=== PATIENT | male | born 1940 | race Caucasian/White ===

== ENCOUNTER 2016-07-24 12:36 | Day surgery (SDC) | payer OTHER ==
[2016-07-24] MEDS ORDERED: ceFAZolin 2 GM/DEXTROSE 100 ML IV ONE (13:00)
[2016-07-24] MEDS ORDERED: D5W LR 1,000 ML IV SCH (13:00)
[2016-07-24] MEDS ORDERED: LIDOCAINE 2% JELLY 20 ML (UROJECT) ONE (13:23)
[2016-07-24] MEDS ORDERED: IOPAMIDOL (ISOVUE-M 300) 15 ML VIAL IV ONE (13:24)
[2016-07-24] MEDS ORDERED: ROCURONIUM 50 MG/5 ML VIAL ONE ×2 (13:26→14:44)
[2016-07-24] MEDS ORDERED: PROPOFOL 200 MG/20 ML VIAL ONE ×2 (13:26)
[2016-07-24] MEDS ORDERED: fentaNYL 100 MCG/2 ML INJ ONE (13:26)
[2016-07-24] MEDS ORDERED: LIDOCAINE 2% 100 MG/5 ML SYR ONE (13:27)
[2016-07-24] MEDS ORDERED: DEXAMETHASONE 4 MG/ML VIAL ONE (13:44)
[2016-07-24] MEDS ORDERED: epHEDrine SULFATE 10 MG/ML SYR ONE (13:52)
[2016-07-24] MEDS ORDERED: GLYCOPYRROLATE 0.2 MG/1 ML VIAL ONE (14:01)
[2016-07-24] MEDS ORDERED: ONDANSETRON 4 MG/2 ML VIAL ONE (14:36)
[2016-07-24] MEDS ORDERED: SUGAMMADEX SODIUM 200 MG/2 ML VIAL IVP ONE (14:36)
--- NOTE | 2016-07-24 15:19 | GOP ---
[f rep st] OPERATIVE REPORT DATE OF OPERATION: SURGEON: Cesar Hurley MD PREOPERATIVE DIAGNOSIS: Right ureteral stone and gross hematuria. POSTOPERATIVE DIAGNOSIS: Right ureteral stone and gross hematuria. Ureteral stricture. PROCEDURE PERFORMED: Ureteroscopy with laser ureterotomy of scar, and holmium laser lithotripsy of stone, and placement of ureteral stent, fluoroscopy with interpretation. FINDINGS: DESCRIPTION OF PROCEDURE: This gentleman underwent general anesthesia, was prepped and draped in normal sterile fashion in dorsal lithotomy position. Under retrograde fashion, he had a retrograde ureteral pyelogram that revealed a stone. The stone was impacted in the ureter, and it was difficult to get a stent or a wire beyond it. Finally, I was able to, and then tried to dilate the intramural ureter with the inner working lumen of the ureteral access sheath , and that was dilated but could not get up to the stone; so, as a semi-rigid scope was passed up, he had 2 dense narrowed areas that were scarred of the ureter, and so laser ureterotomy was performed, and then I was able to get the stone, fragment it in pieces and extract the fragments with the scope. Then, under fluoroscopic control, I passed a 4.7 multi-length stent that curled in the renal pelvis, curled in the bladder. The bladder was emptied, and the position of this stent was a good place. 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 He had Urojet placed in the urethra, and a Aldridge catheter placed. He will be discharged home, and have him remove his catheter tomorrow at home. He is to follow up with me for stent removal in approximately 2 weeks. /[id number]/MODL MTDD
== END 2016-07-24 16:35 | disposition home or self-care (01) ==
LOC: FSGY 12:36
PROVIDERS: ATTEND Specialist
PROC: 0T9080Z Drainage of Right Kidney with Drainage Device, Via Natural or Artificial Opening Endoscopic (ICD-10-PCS; principal; 2016-07-24 15:15)
PROC: 0TC08ZZ Extirpation of Matter from Right Kidney, Via Natural or Artificial Opening Endoscopic (ICD-10-PCS; principal; 2016-07-24 15:15)
PROC: 0TC68ZZ Extirpation of Matter from Right Ureter, Via Natural or Artificial Opening Endoscopic (ICD-10-PCS; principal; 2016-07-24 15:15)
DX: N20.2 Calculus of kidney with calculus of ureter (principal); Z85.46 Personal history of malignant neoplasm of prostate
CPT/HCPCS: 52352; 76001; C1758; C1769; C1894; C2625; J0690; J1100; J2001; J2405; J2704; J3010; Q9967

== ENCOUNTER → 2017-04-03 | Outpatient (CLI) | payer OTHER | LOC: BHFA 14:00 | PROVIDERS: ATTEND Internal Medicine Cardiovascular Disease | DX: I73.9 Peripheral vascular disease, unspecified (principal); G62.9 Polyneuropathy, unspecified ==

== ENCOUNTER → 2017-08-14 | Outpatient (CLI) | payer OTHER | LOC: BHFA 13:15 | PROVIDERS: ATTEND Internal Medicine | DX: R06.09 Other forms of dyspnea (principal); I25.10 Atherosclerotic heart disease of native coronary artery without angina pectoris ==

== ENCOUNTER 2018-08-26 10:21 | Emergency (ER) | payer OTHER ==
[2018-08-26] MEDS ORDERED: DILTIAZEM 30 MG TAB PO ONE (12:26)
[2018-08-26] MEDS ORDERED: APIXABAN 5 MG TAB PO ONE (12:26)
== END 2018-08-26 13:16 | disposition home or self-care (01) ==
DX: I48.92 Unspecified atrial flutter (principal)

== ENCOUNTER 2018-09-22 11:00 | Observation (INO) | payer OTHER ==
[2018-09-22] MEDS ORDERED: NS 1,000 ML IV ONE (11:07)
[2018-09-22 12:09] LABS: PLATELET COUNT 108 10^3/uL (150-400)
[2018-09-22 12:16] LABS: INR 1.08 (0.83-1.16); PROTIME(PATIENT) 13.6 SEC (12.0-15.0)
[2018-09-22] MEDS ORDERED: HEPARIN 10,000 UNIT/10 ML MDV (1,000 UNIT/ML) ONE ×2 (12:16→13:41)
[2018-09-22] MEDS ORDERED: BUPIVACAINE 0.5% 30 ML SDV ONE (12:16)
[2018-09-22] MEDS ORDERED: ISOPROTERENOL HCL/D5W 0.2 MG/50 ML BAG IV ONE (12:17)
[2018-09-22] MEDS ORDERED: PROPOFOL 200 MG/20 ML VIAL ONE (12:33)
[2018-09-22] MEDS ORDERED: fentaNYL 100 MCG/2 ML INJ ONE (12:33)
--- NOTE | 2018-09-22 12:39 | PDGENHP ---
History & Physical Chief Complaint: typical atrial flutter History of Present Illness: typical atrial flutter Relevant Physical Exam: A+Ox4, irr irr (AFL with variable conduction), CTAB, no focal deficits Cardiorespiratory Assessment: typical AFL -> CONSUELO + CTI ablation
--- NOTE | 2018-09-22 12:49 | POSTANESTH ---
Post Anesthetic Evaluation Cardiovascular Status: Normal, Stable Respiratory Status: Normal, Stable Level of Consciousness/Mental Status: Can Participate in Eval Pain Control: Adequate, Prn Tx Ordered Nausea/Vomiting Control: Adequate, Prn Tx Ordered Complications Possibly Related to Anesthesia: None Noted
--- NOTE | 2018-09-22 12:49 | PDANEPAE ---
ANE Past Medical History - Cardiovascular History Hx Hypertension: Yes Hx Arrhythmias: No Hx Chest Pain: No Hx Coronary Artery / Peripheral Vascular Disease: No Hx CHF / Valvular Disease: No Hx Palpitations: No - Pulmonary History Hx COPD: No Hx Asthma/Reactive Airway Disease: No Hx Recent Upper Respiratory Infection: No Hx Oxygen in Use at Home: No Hx Sleep Apnea: No - Neurologic History Hx Cerebrovascular Accident: No Hx Seizures: No Hx Dementia: No - Endocrine History Hx Diabetes: No - Renal History Hx Renal Disorders: Yes Renal History Comment: kidney stone at present - Liver History Hx Hepatic Disorders: No - Neurological & Psychiatric Hx Hx Neurological and Psychiatric Disorders: No - Cancer History Hx Cancer: Yes Cancer History Comment: prostate - Congenital Disorder History Hx Congenital Disorders: No - GI History Hx Gastrointestinal Disorders: No - Chronic Pain History Chronic Pain: No - Surgical History Prior Surgeries: micro discectomy L3-4. prostatectomy 2013. left hand surgery. diaz BRIONES Review of Systems Review of Systems: ANSELMO Patient History - Allergies Allergies/Adverse Reactions: erythromycin base [Erythromycin Base] Allergy (Severe, Verified 08/26/18 10:31) Swelling/neck,face,throat - Home Medications Home Medications: Allopurinol [Allopurinol 300 MG (RX)] 300 mg PO DAILY 08/10/12 [Last Taken 07/23] Aspirin EC [Aspirin EC 81 mg (OTC)] 81 mg PO DAILY 08/10/12 [Last Taken 07/17/16 ] Atorvastatin Calcium [Lipitor 10 mg (RX)] 10 mg PO DAILY 08/10/12 [Last Taken ] Cholecalciferol Vit D3 [Vitamin D3 1000 units (OTC)] 1,000 units PO DAILY [Last Taken 07/24/16] Eplerenone [Inspra] 75 mg PO DAILY 08/10/12 [Last Taken 07/24/16] Multivitamins [Tab-A-Lynda] 1 each PO DAILY 08/10/12 [Last Taken 07/24/16] aMILoride HCL [Amiloride HCl] 10 mg PO DAILY 08/10/12 [Last Taken 07/23/16] Diltiazem HCl [Diltiazem 24Hr Cd] 120 mg PO DAILY 09/17/18 [Last Taken Unknown] Lisinopril [Zestril 40 mg (*)] 40 mg PO DAILY 09/17/18 [Last Taken Unknown] Serum Eye Drops 1 drop EACHEYE QID 09/17/18 [Last Taken Unknown] amLODIPine BESYLATE [Amlodipine Besylate] 5 mg PO DAILY 09/17/18 [Last Taken Unknown] - Smoking Hx Smoking Status: Never smoked - Family Anes Hx Family Hx Anesthesia Complications: none ANE Labs/Vital Signs - Labs Result Diagrams: 09/22/18 11:50 09/22/18 11:50 - Vital Signs Height: 173 cm Weight: 74.8 kg ANE Physical Exam - Airway Neck exam: FROM Mallampati Score: Class 2 Mouth exam: normal dental/mouth exam - Pulmonary Pulmonary: no respiratory distress, no rales or rhonchi, clear to auscultation - Cardiovascular Cardiovascular: no murmur, rub, or gallop, irregularly irregular - ASA Status ASA Status: III ANE Anesthesia Plan Anesthesia Plan: general endotracheal anesthesia
[2018-09-22] MEDS ORDERED: ROCURONIUM 100 MG/10 ML VIAL ONE (13:29)
[2018-09-22] MEDS ORDERED: PHENYLEPHRINE HCL 100 MCG/ML SYR ONE ×3 (13:38→14:44)
[2018-09-22] MEDS ORDERED: HEPARIN/DEXTROSE 25,000 UNIT/500 ML BAG ONE (13:41)
[2018-09-22] MEDS ORDERED: ePHEDrine SULFATE 25 MG/5 ML SYR ONE ×2 (14:18→14:44)
[2018-09-22] MEDS ORDERED: ONDANSETRON 4 MG/2 ML VIAL ONE (14:57)
[2018-09-22] MEDS ORDERED: SUGAMMADEX SODIUM 200 MG/2 ML VIAL IVP ONE (14:57)
[2018-09-22] MEDS ORDERED: PROTAMINE SULFATE 50 MG/5 ML VIAL IVP ONE (16:41)
[2018-09-22] MEDS ORDERED: ACETAMINOPHEN 325 MG TAB PO PRN (17:21)
[2018-09-22] MEDS ORDERED: OXYCODONE/APAP 5/325 TAB PO PRN (17:21)
[2018-09-22] MEDS ORDERED: FUROSEMIDE 40 MG/4 ML VIAL IVP ONE (17:31)
--- NOTE | 2018-09-22 17:35 | POSTANESTH ---
Post Anesthetic Evaluation Cardiovascular Status: Normal, Stable Respiratory Status: Normal, Stable Level of Consciousness/Mental Status: Can Participate in Eval, Alert and Oriented Pain Control: Adequate, Prn Tx Ordered Nausea/Vomiting Control: Adequate, Prn Tx Ordered Complications Possibly Related to Anesthesia: None Noted
--- NOTE | 2018-09-22 18:11 | EPPROC ---
Electrophysiology Procedure Note: Date: 09/22/2018 Distribution Accounting Clerk: José Miguel Dykes MD Procedures: Comprehensive EP study, transseptal access, and pulmonary vein isolation -50697 Ablation of left atrial roof flutter-936 I 7 Ablation of mitral isthmus flutter -49957 Ablation of focal left atrial tachycardia (base of the left atrial appendage) - 73419 3D electro anatomic mapping -15661 Intracardiac echo -47694 Transesophageal ECHO-81287 Indications: 78-year-old male with persistent atrial flutter, suspected typical atrial flutter based on lack of prior a triage any or atrial ablation, and typical appearance by ECG. Techniques: Following informed consent, the patient was brought to the EP lab in a fasting nonsedated state, in atrial flutter rhythm. General anesthesia was provided by the anesthesiology service. Transesophageal echocardiography demonstrated the absence of left atrial appendage thrombus (see formal report for full details). Bilateral groins were prepped and draped in usual sterile fashion. Under ultrasound guidance, vascular access was obtained x2 in the right femoral vein with placement of 8 [place] and SR 0 sheaths. A Thrasos Touch SF DF curved catheter was advanced to the right atrium under Carto guidance and used to create a right atrial and CS map. A decapolar catheter was positioned in the CS. After positioning of the decapolar catheter in the CS, it was noted that the CS activation pattern was distal to proximal, raising concern for atypical atrial flutter. Activation mapping of the right atrium showed bystander activation of the RA. Entrainment from CS distal showed short PPI; entrainment from CS proximal showed a long PPI. The decision was made to proceed with transseptal access. Weight based heparin bolus and drip was administered, targeting ACT 350 sec. A esophageal temperature probe was inserted. The SR 0 sheath was exchanged for an SL 0 sheath. Under ultrasound guidance, an additional access was obtained in the right femoral vein with placement of an 8 [place] sheath, through which a Sound Star intracardiac echo catheter was inserted. This was used to create a CARTO sound map of the LA, MONI[place], pulmonary veins, and esophagus. A Sysorex transseptal needle was inserted in the SL 0 sheath, and the system was positioned at the fossa ovalis under intracardiac echo guidance. The fossa was crossed, and the sheath positioned in the mid LA. The sheath was connected to continuous saline irrigation. A PentaRay multipolar catheter was used to create a Carto anatomic map of the left atrium, left atrial appendage, pulmonary veins. Activation mapping and entrainment mapping of atrial tachycardia #1 was performed. AT #1 showed TCL 220ms, CS distal>proximal activation, and mapping suggestive of focal origin at the base of the left atrial appendage, near the mitral valve at the 2 o'clock position. The PentaRay was replaced with the ablation catheter , and RF ablation was performed at 35-40 w power in this location. During RF ablation, the CS activation pattern changed, suggesting transition to atrial tachycardia #2. AT #2 showed TCL 210ms, flat CS activation; entrainment mapping and local activation mapping suggested left atrial roof flutter, with preferential reentry around the base of the left pulmonary veins. Due to the need for LA roof flutter ablation, the decision was made to proceed with pulmonary vein isolation. RF ablation was performed in a wide area circumferential fashion, encircling the left pulmonary veins, then the right pulmonary veins EN bloc. The posterior aspect of the right inferior pulmonary vein was ablated using 25 w , non irrigated, short duration lesions due to esophageal proximity. After completion of the PVI lesion set, a connecting left atrial roof line was performed at 40 w power. Near completion of the left atrial roof line, the CS activation pattern was noted to change again to atrial tachycardia #3. AT #3 showed TCL 225ms, CS distal to proximal activation; entrainment mapping and local activation mapping suggested mitral isthmus reentry flutter in a clockwise fashion. RF ablation was performed at 40 w power, creating an anterior mitral isthmus line, connecting the previously ablated atrial tachycardia at the 2 o'clock mitral annulus, to the RSPV. Near completion of the anterior mitral isthmus line, the CS activation pattern was noted to change once again, however this time showed a more polymorphic appearance. The patient was then cardioverted out of multifocal atrial tachycardia. The ablation catheter was then removed, and the PentaRay catheter was reinserted. Substrate mapping demonstrated isolation of all 4 pulmonary veins, as well as complete left atrial roof and mitral isthmus lines. Activation mapping suggested block across both lines (inferior to superior activation of the posterior wall during sinus rhythm suggesting block across the roof line; septal to lateral activation of the anterior wall during CS distal pacing suggesting block across the anterior mitral isthmus line). At the completion of the procedure, intracardiac echo survey showed no evidence of pericardial effusion; biventricular systolic function was preserved. All catheters were removed. A temporary hemostasis suture was applied to the right groin access site, and all sheaths were removed; manual pressure was held until hemostasis. The patient tolerated the procedure well. EBL: 30 cc Complications: None Assessment: Focal left atrial tachycardia arising at the base of the left atrial appendage, successfully ablated Left atrial roof flutter, successfully ablated via left atrial roof line and pulmonary vein isolation Mitral isthmus flutter, successfully ablated via anterior mitral isthmus line Plan: Bedrest for 6 hr Echo in a.m. Resume Eliquis at the completion of bedrest, continue for 3 months PPI for 6 weeks post ablation Groin precautions for 10 days
[2018-09-22] MEDS: APIXABAN 5 MG TAB PO SCH (23:06)
[2018-09-23 06:44] LABS: CREATINE KINASE 94 IU/L (0-224)
[2018-09-23 07:03] LABS: PLATELET COUNT 100 10^3/uL (150-400)
--- NOTE | 2018-09-23 07:51 | ECHO ---
[email or web address] [address] [address] Main: [phone] Echocardiography Examination Transesophageal Name: WILTON LUNA MR#: [id number] Study Date: 09/22/2018 Study Time: 12:59 PM Date of : 1940 Age: 78 year(s) Height: ( ) Weight: ( ) BSA: Gender: Male Examination: CONSUELO Contrast: Image Quality: Adequate Rhythm: Heart Rate: BP: / Indication: Pre EP study/eval for thrombus Procedure Staff Referring Physician: Help Desk Intern: Perla Morales [facility] Reading Physician: Krunal Dykes MD Requesting Provider: Ordering Physician: Krunal Dykes MD Indication: Pre EP study/eval for thrombus Acute complication: None Conclusions Left Ventricle: Normal global systolic left ventricular function. Left Atrium Appendage: The left atrial appendage function is normal (normal emptying velocity). No thrombus is identified. IAS: An agitated saline study was performed and was negative for intracardiac shunting. Mitral Valve: Mild to moderate mitral regurgitation. Tricuspid Valve: Moderate tricuspid regurgitation. Findings Left Ventricle: Normal global systolic left ventricular function. Patient: WILTON LUNA Study Date: 09/22/2018 Page 1 of 2 12:59 PM IVS: The septum is intact. Left Atrium Appendage: The left atrial appendage function is normal (normal emptying velocity). Normal left atrial appendage. No thrombus is identified. IAS: An agitated saline study was performed and was negative for intracardiac shunting. No evidence of a patent foramen ovale. Right Atrium: Definite Eustachian valve in right atrium. Mitral Valve: Mildly thickened mitral leaflets.. Mild to moderate mitral regurgitation. No mitral valve stenosis. Aortic Valve: Aortic leaflets exhibit normal cuspal separation. No aortic valve regurgitation. There is no aortic stenosis. The aortic valve is trileaflet. Tricuspid Valve: Normal. Moderate tricuspid regurgitation. Pulmonic Valve: Pulmonic valve is poorly visualized. Aorta: The aorta is normal. Exam Details Procedure Ordered: CONSUELO Procedure Status: Routine study Image Quality: Adequate Consent: Risks, alternatives of procedure explained to patient, informed consent obtained Probe Insertion: Attending dining room busser Facility Location: Cardiac Echo 1 (No Signature Object) Patient: WILTON LUNA Study Date: 09/22/2018 Page 2 of 2 12:59 PM [id number]
[2018-09-23] MEDS: APIXABAN 5 MG TAB PO SCH (08:43)
[2018-09-23] MEDS ORDERED: ALLOPURINOL 300 MG TAB PO SCH (09:00)
[2018-09-23] MEDS ORDERED: LISINOPRIL 40 MG TAB PO SCH (09:00)
[2018-09-23] MEDS ORDERED: ATORVASTATIN CALCIUM 10 MG TAB PO SCH (09:00)
[2018-09-23] MEDS ORDERED: EPLERENONE 75 MG PO SCH (09:00)
[2018-09-23] MEDS ORDERED: EPLERENONE 25 MG TAB PO SCH (09:00)
[2018-09-23] MEDS ORDERED: amLODIPine BESYLATE 5 MG TAB PO SCH (09:00)
[2018-09-23] MEDS ORDERED: PANTOPRAZOLE SODIUM 40 MG TAB PO SCH (09:00)
[2018-09-23 10:56] VITALS: BP 121/78
--- NOTE | 2018-09-23 12:33 | ECHO ---
[email or web address] [address] [address] Main: [phone] Echocardiography Examination Transthoracic Name: WILTON LUNA MR#: [id number] Study Date: 09/23/2018 Study Time: 08:13 AM Date of : 1940 Age: 78 year(s) Height: 172.7 cm (68 in.) Weight: 74.39 kg (164 lb.) BSA: 1.88 m2 Gender: Male Examination: Echo Contrast: Image Quality: Rhythm: Normal sinus rhythm Heart Rate: 90 bpm BP: 133 mmHg/88 mmHg Indication: Post Ablation Procedure Staff Referring Physician: Livestock Rancher: Carlitos Umana RDCS Reading Physician: Choco Menjivar MD Requesting Provider: Ordering Physician: Krunal Dykes MD Indication: Post Ablation Measurements Chambers AV/MV Label Value Normal Value Label Value Normal Value LVOT Vmax 0.94 m/s (0.7m/s - 1.1m/s) AV PGmax 8 mmHg LVDd, 2D 4.6 cm (4.2cm - 5.9cm) AV PGmean 5 mmHg LVDs, 2D 2.5 cm (2.1cm - 4cm) AV Vmax 1.38 m/s IVSd, 2D 0.8 cm (0.6cm - 1.1cm) MV E Vmax 0.97 m/s LVPWd, 2D 0.9 cm (0.6cm - 1cm) MV A Vmax 0.73 m/s LVEF, 2D 77 % (54% - 74%) MV E/A 1.33 RVDd, 2D 2.6 cm (1.9cm - 3.8cm) MV E/E' lateral 11.4 LA Volume, BP 62 ml (18ml - 58ml) MV E/E' septal 11.1 (0.45 - 1.25) LADs, 2D 4 cm (3cm - 4cm) MV E' septal 0.09 m/s LAESV index, BP 33 ml/m2 MV E' lateral 0.08 m/s Additional Vessels MV E/E' mean 11.41 Label Value Normal Value MV E' mean 0.08 m/s AoRoot, MM 3.6 cm (2.2cm - 3.7cm) TV/PV Label Value Normal Value RA Pressure 5 mmHg RVSP 37 mmHg TR Pmax 32 mmHg TR Vmax 2.85 m/s PV PGmax 3 mmHg Patient: WILTON LUNA Study Date: 09/23/2018 Page 1 of 3 08:13 AM PV Vmax, Caliper 0.81 m/s (0.6m/s - 0.9m/s) Conclusions Left Ventricle: Left ventricle is normal in size. EF range is estimated at 70 % - 80 %. There are no regional wall motion abnormalities. Grade II Diastolic Dysfunction. Right Ventricle: The RV function appears grossly normal. Mitral Valve: Mild to moderate mitral regurgitation. Aortic Valve: The aortic valve is trileaflet. Tricuspid Valve: Mild tricuspid regurgitation. Right Ventricular systolic pressure is measured at 37 mmHg. Pericardium: Trivial pericardial effusion. Findings Left Ventricle: Left ventricle is normal in size. Normal global systolic left ventricular function. The EF is visually estimated to be 80 %. EF range is estimated at 70 % - 80 %. Left ventricle wall thickness is normal. There are no regional wall motion abnormalities. Grade II Diastolic Dysfunction. Right Ventricle: Normal size right ventricle. The RV function appears grossly normal. Left Atrium: The left atirum is borderline dilated. Right Atrium: The right atrium is normal in size. Mitral Valve: Mitral valve appears structurally normal. Mild to moderate mitral regurgitation. There is minimal mitral calcification. Aortic Valve: No significant aortic valve regurgitation. Aortic leaflets exhibit no calcification. The aortic valve is trileaflet. Tricuspid Valve: Tricuspid valve leaflets are structurally normal. Mild tricuspid regurgitation. Right Ventricular systolic pressure is measured at 37 mmHg. Pulmonic Valve: Pulmonic leaflets are structurally normal. No significant pulmonic valve regurgitation is evident. Aorta: The aorta is normal. The aortic root size in M-mode measures 3.6 cm. Aorta Measurements AoRoot, MM is 3.6 cm. Pericardium: Trivial pericardial effusion. Echo findings are not consistent with tamponade physiology. Patient: WILTON LUNA Study Date: 09/23/2018 Page 2 of 3 08:13 AM Exam Details Procedure Ordered: Echo (No Signature Object) Patient: WILTON LUNA Study Date: 09/23/2018 Page 3 of 3 08:13 AM [id number]
--- NOTE | 2018-09-23 14:44 | GDS ---
[f rep st] DISCHARGE SUMMARY SUPERVISING SOCIAL SERVICE AGENCY DIRECTOR: Dr. Krunal Dykes ADMISSION DIAGNOSIS: Persistent atrial flutter. DISCHARGE DIAGNOSES: Atypical atrial flutter, status post successful ablation. PROCEDURES PERFORMED DURING HOSPITALIZATION: 1. Electrocardiogram. 2. Echocardiogram. 3. Electrophysiology study. 4. Successful ablation of 3 left atrial tachycardias. HOSPITAL COURSE: Patient presented 09/22/2018, for an atrial flutter ablation in the setting of pers istent symptomatic episodes of atrial arrhythmia with a typical atrial flutter appearance by ECG. El ectrophysiology study demonstrated 3 separate focal left atrial tachycardias including a focal left a trial tachycardia arising at the base of the left atrial appendage, a left atrial roof flutter, and a mitral isthmus flutter, which were all successfully ablated by Dr. Krunal Dykes. He had no intra -procedure complications and he has done very well in the postprocedure setting. He is appropriate a nd stable for discharge home today. PHYSICAL EXAMINATION: GENERAL: Alert and oriented x4. No apparent distress. VITAL SIGNS: Blood p ressure 121/78, heart rate 91, respiratory rate 17, SpO2 is 95% on room air, temp is 36.6 degrees [place]. RESPIRATORY: Lungs are clear to auscultation without adventitious breath sounds. CARDIAC: R egular rate and rhythm. S1, S2. ABDOMEN: Normoactive bowel sounds times all 4 quadrants. No kervin s or tenderness. SKIN: [place], warm, dry without cyanosis, clubbing, or peripheral edema. EXTREMITIE S: Right groin pursestring suture removed intact without evidence of hematoma, redness, oozing, swel ling or warmth, mild ecchymosis to the site. Pulses are 2+ bilaterally. No edema. LABORATORY STUDIES: Drawn today, demonstrate stable CBC and BMP compared to preprocedure aside from WBCs which were 10.67. Troponin was 1.62. Please note that elevated WBCs and troponin are to be exp ected in the postprocedure setting. Procedures performed during hospitalization, electrophysiology study and atrial tachycardia ablation as mentioned above. Preliminary review of postprocedure echocardiogram demonstrates hyperdynamic lef t ventricular systolic function with LVEF 70% to 80%, there is grade 2 diastolic dysfunction, mild-to -moderate mitral valve regurgitation with minimal mitral calcification, mild tricuspid regurgitation, and aortic root measuring 3.6 cm. ECG this morning demonstrates normal sinus rhythm with a normal p .r.n. interval and without new ST-T wave or AL interval abnormalities. DISCHARGE DISPOSITION: The patient will be discharged home in a stable condition. He is under activ ity restrictions as below. DISCHARGE MEDICATIONS: Please see discharge medication reconciliation sheet for full details. Marques patino note that patient's diltiazem has been discontinued. He will continue Eliquis for 3 months post pr ocedure. He will take colchicine 0.3 mg twice daily for 2 weeks for pericarditis prophylaxis. He wi ll also continue proton pump inhibitor daily for the next 6 weeks for GI prophylaxis. DISCHARGE INSTRUCTIONS: 1. Post atrial tachycardia ablation instructions were reviewed with patient and his partner in hilario torrez. 2. We discussed activity restrictions including lifting no more than 10 pounds and avoidance of subm erged bathing for 10 days. 3. He will get up and walk around every 45 minutes for 45 days while awake. 4. We reviewed bleeding precautions, medication compliance, monitoring for signs and symptoms of atr ial esophageal fistula, and monitoring for sustained arrhythmias. 5. If patient is to engage in any unpressurized air travel or scuba diving in the future, he will pr esent to [facility] for an echocardiogram with bubble study prior to engaging in either of these a ctivities. At the time of discharge, patient verbalized understanding regarding all discharge instructions witho ut questions or concerns. He will follow up with [facility] in 4 weeks, sooner for an y new or concerning symptoms. Time spent on discharge greater than 30 minutes. /[id number]/MODL
== END 2018-09-23 11:50 | disposition home or self-care (01) ==
LOC: FCATH 11:00 → F2N 17:22
PROVIDERS: ADMIT Internal Medicine Cardiovascular Disease; ATTEND Internal Medicine Cardiovascular Disease
DX: I48.3 Typical atrial flutter (principal); I10 Essential (primary) hypertension; Z85.46 Personal history of malignant neoplasm of prostate
CPT/HCPCS: 93306; 93312; 93613; 93655; 93656; 93662; C1730; C1732; C1759; C1893; J1644; J1940; J2370; J2405; J2704; J2720; J3010